=== PATIENT | male | born 1970 | race Caucasian/White ===

== ENCOUNTER 2020-12-16 16:38 | Emergency (ER) | payer MEDICARE, MEDICAID, SELFPAY ==
[2020-12-16 17:03] VITALS: BP 134/99; PULSE 71; RESP 16; TEMP 36.9; O2SAT 98
--- NOTE | 2020-12-16 17:45 | ED.LOWEXIN ---
HPI - Extremity Injury (Lower) General Chief Complaint: Urogenital-Male Stated Complaint: uti Source: patient Mode of arrival: wheelchair Limitations: no limitations History of Present Illness HPI Narrative: Patient is a 50 year old male who presents with snf staff for suspected UTI. Patient has a hx of cerebral palsy and is in a wheelchair. Staff reports that patient had frequent urination yesterday. Denies dysuria, denies all other complaints at this time. MD complaint: other (UTI) Related Data Home Medications Medication Instructions Recorded Confirmed carvedilol 3.125 mg PO DAILY 12/16/20 12/16/20 clonidine 0.3 mg TRANSDERMAL WEEKLY 12/16/20 12/16/20 lisinopril 20 mg PO DAILY 12/16/20 12/16/20 olanzapine 20 mg PO DAILY 12/16/20 12/16/20 pantoprazole 40 mg PO DAILY 12/16/20 12/16/20 paroxetine HCl 40 mg PO DAILY 12/16/20 12/16/20 phenobarbital 32.4 mg PO BID 12/16/20 12/16/20 sucralfate 1 g PO DAILY 12/16/20 12/16/20 Allergies Allergy/AdvReac Type Severity Reaction Status Date / Time No Known Allergies Allergy Verified 12/16/20 17:36 Review of Systems Review of Systems: CONSTITUTIONAL: Denies fever, chills, or sweats. EYES: Denies visual changes, redness, or discharge. ENT: Denies rhinorrhea, congestion, sore throat, or otalgia. CARDIOVASCULAR: Denies chest pain, palpitations, or edema. RESPIRATORY: Denies cough or dyspnea. GASTROINTESTINAL: Denies abdominal pain, nausea, vomiting, or diarrhea. GENITOURINARY: Reports urinary frequency, denies dysuria SKIN: Denies rash or itching. MUSCULOSKELETAL: Denies back pain, joint pain, or myalgia. NEUROLOGIC: Denies headache, numbness, dizziness, or weakness. PSYCHIATRIC: Denies anxiety or depression. [facility] Past Medical History Medical History Cerebral palsy Congenital contractures Depression Generalized headaches HTN (hypertension) Social History Social History (Updated 12/16/20 @ 17:49 by JAMES Garrison) Smoking status: Never smoker Alcohol intake: never Substance use: never Living arrangements: snf Comments At the time of signature, I have reviewed and agree with nursing past medical, surgical, social, and family history unless otherwise noted. Please see nursing chart for further information. There is no relevant family history pertinent to the presenting complaint. Exam Narrative: GENERAL: Well-appearing, well-nourished, and in no acute distress. HEAD: Normocephalic, atraumatic. EYES: EOMI. No redness or drainage. Conjunctiva are normal. ENT: Mucous membranes pink and moist. CHEST: No respiratory distress. Clear to auscultation. HEART: Regular rate and rhythm. GI: Soft, nontender without rebound, or guarding. EXTREMITIES: Normal range of motion. No edema. SKIN: Warm, dry, no rash. NEURO: No focal deficits. Alert and oriented x3. Gait steady. PSYCH: Normal affect. No signs of depression or anxiety. Course Vital Signs Vital signs: Vital Signs Temperature 36.9 C 12/16/20 17:03 Pulse Rate 71 12/16/20 17:03 Respiratory Rate 16 12/16/20 17:03 Blood Pressure 134/99 H 12/16/20 17:03 Pulse Oximetry 98 12/16/20 17:03 Temperature 36.9 C 12/16/20 17:03 Pulse Rate 71 12/16/20 17:03 Respiratory Rate 16 12/16/20 17:03 Blood Pressure 134/99 H 12/16/20 17:03 Pulse Oximetry 98 12/16/20 17:03 Reviewed. Patient has been instructed to follow-up with his PCP regarding his blood pressure. MDM - Extremity Injury (Lower) MDM Narrative Medical decision making narrative: Patient had 1+ blood per UA. Patient continues have no complaints. 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 Patient and bindery machine setter/set up operator agree with plan of care. Patient is stable for discharge home with outpatient follow-up as discussed. Differential Diagnosis Differential diagnosis: Likely other
== END 2020-12-16 18:42 | disposition home or self-care (01) ==
PROVIDERS: Emergency Provider Nurse Practitioner; PCP Family Medicine
DX: R35.0 Frequency of micturition (principal); G80.9 Cerebral palsy, unspecified; I10 Essential (primary) hypertension
CPT/HCPCS: 51701; 81003; 99212; G0463